=== PATIENT | female | born 1995 | race African-American/Black ===

== ENCOUNTER 2019-05-11 10:23 | Emergency (ER) | payer OTHER ==
[2019-05-11 10:34] VITALS: BMI 28.0
[2019-05-11] MEDS ORDERED: SODIUM CHLORIDE 1,000 ML IV STA (11:24)
[2019-05-11] MEDS ORDERED: KETOROLAC TROMETHAMINE 30 MG/1 ML VIAL IVPUSH ONE (11:31)
[2019-05-11] MEDS ORDERED: DEXAMETHASONE SOD PHOSPHATE 10 MG/1 ML VIAL IVPUSH ONE (11:38)
[2019-05-11 11:44] LABS: BASO % 0.5 % (0-2.0); EOS % 0.2 % (0-4.5); HEMATOCRIT 40.7 % (32.4-45.2); HEMOGLOBIN 13.1 GM/dL (10.7-15.3); MCH 24.6 pg (25.7-33.7); MCHC 32.2 g/dl (32.0-36.0); MEAN CELL VOLUME 76.2 fl (80-96); MEAN PLT VOLUME 8.1 fl (7.5-11.1); MONO % 6.9 % (3.8-10.2); NEUT % 68.4 % (42.8-82.8); PLATELET COUNT 304 K/MM3 (134-434); RBC 5.35 M/mm3 (3.60-5.2); RDW 12.7 % (11.6-15.6)
--- NOTE | 2019-05-11 11:47 | PDOC ---
History of Present Illness <Clarence Hall - Last Filed: 05/11/19 14:46> - General History Source: Patient Exam Limitations: No Limitations - History of Present Illness Initial Comments: 05/11/19 11:47 CHIEF COMPLAINT: Tooth pain HISTORY OF PRESENT ILLNESS: This is an otherwise healthy 24-year-old female who presents ambulatory to the emergency department for evaluation of dental pain and swelling. Patient had upper and lower right-sided wisdom teeth removed on Tuesday with an oral surgeon. She reports the rapid development of right- sided cheek swelling and swelling under her chin today. She is unable to fully open her mouth to speak or to drink fluids. She denies fever/chills. She has not noticed any redness/warmth in the area. She denies difficulty breathing or swallowing her own secretions. Vital signs on arrival are unremarkable. REVIEW OF SYSTEMS: GENERAL/CONSTITUTIONAL: No fever or chills. No weakness. No weight change. HEAD, EYES, EARS, NOSE AND THROAT: See HPI. CARDIOVASCULAR: No chest pain or palpitations. RESPIRATORY: No cough, wheezing, or shortness of breath. GASTROINTESTINAL: No nausea, vomiting, diarrhea or constipation. GENITOURINARY: No dysuria, frequency, or change in urination. MUSCULOSKELETAL: No joint or muscle swelling or pain. No neck or back pain. SKIN: No rash or easy bruising. NEUROLOGIC: No headache, vertigo, loss of consciousness, or loss of sensation. PSYCHIATRIC: No depression or anxiety. ENDOCRINE: No increased thirst. No abnormal weight change. HEMATOLOGIC/LYMPHATIC: No anemia, easy bleeding, or history of blood clots. ALLERGIC/IMMUNOLOGIC: No hives or skin allergy. No latex allergy. PHYSICAL EXAM: GENERAL: The patient is awake, alert, and fully oriented, in no acute distress. HEAD: Normal with no signs of trauma. ENT: Marked swelling right side of face with submandibular fullness. Trismus. LUNGS: Clear to auscultation bilaterally. Normal excursion. No respiratory distress or use of accessory muscles. CV: RRR, S1/S2, no MRG. Cap refill < 2 sec. ABDOMEN: Soft, non-distended, non-tender. EXTREMITIES: Normal range of motion, no edema. NEUROLOGICAL: Normal speech, normal gait. CN II-XII grossly intact. PSYCH: Normal mood, normal affect. SKIN: Warm, dry, normal turgor, no rashes or lesions noted. <Destinee Sandoval - Last Filed: 05/11/19 16:38> - General Chief Complaint: Toothache Stated Complaint: toothache Time Seen by Provider: 05/11/19 11:18 Past History <Clarence Hall - Last Filed: 05/11/19 14:46> - Past Medical History COPD: No Other medical history: grave's disease - Immunization History Immunization Up to Date: No - Psycho Social/Smoking Cessation Hx Smoking History: Never smoked Have you smoked in the past 12 months: No Information on smoking cessation initiated: No Hx Alcohol Use: No Drug/Substance Use Hx: No <Destinee Sandoval - Last Filed: 05/11/19 16:38> - Past Medical History Allergies/Adverse Reactions: Allergies Allergy/AdvReac Type Severity Reaction Status Date / Time No Known Allergies Allergy Verified 05/11/19 10:34 Home Medications: Ambulatory Orders Amoxicillin - [Amoxicillin 500mg Capsule -] 500 mg PO TID 05/11/19 Clindamycin [Cleocin -] 600 mg PO Q6H #56 capsule 05/11/19 Ibuprofen [Motrin -] 600 mg PO QID #30 tablet 05/11/19 *Physical Exam - Vital Signs Last Vital Signs Temp Pulse Resp BP Pulse Ox 98.9 F 92 H 18 122/83 99 05/11/19 13:43 05/11/19 13:43 05/11/19 13:43 05/11/19 13:43 05/11/19 13:43 <Clarence Hall - Last Filed: 05/11/19 14:46> - Vital Signs Last Vital Signs Temp Pulse Resp BP Pulse Ox 99.4 F 77 18 135/81 98 05/11/19 10:31 05/11/19 10:31 05/11/19 10:31 05/11/19 10:31 05/11/19 10:31 <Destinee Sandoval - Last Filed: 05/11/19 16:38> ED Treatment Course - LABORATORY CBC & Chemistry Diagram: 05/11/19 11:30 05/11/19 11:30 - ADDITIONAL ORDERS Additional order review: Laboratory Results 05/11/19 05/11/19 05/11/19 11:30 11:30 11:30 PT with INR 13.40 H INR 1.13 H Sodium 139 Potassium 4.1 Chloride 106 Carbon Dioxide 26 Anion Gap 7 L BUN 7.1 Creatinine 0.6 Est GFR (CKD-EPI)AfAm 147.86 Est GFR (CKD-EPI)NonAf 127.58 Random Glucose 91 Calcium 9.5 Total Bilirubin 0.4 AST 19 ALT 21 Alkaline Phosphatase 89 Total Protein 8.0 Albumin 3.8 Serum , Qual Negative 05/11/19 11:30 RBC 5.35 H MCV 76.2 L MCHC 32.2 RDW 12.7 MPV 8.1 Neutrophils % 68.4 Lymphocytes % 24.0 Monocytes % 6.9 Eosinophils % 0.2 Basophils % 0.5 - Medications Given in the ED: ED Medications Discontinued Medications Generic Name Dose Route Start Last Admin Trade Name Freq PRN Reason Stop Dose Admin Dexamethasone Sodium Phosphate 10 mg 05/11/19 11:38 05/11/19 12:00 Decadron Injection - IVPUSH 05/11/19 11:39 10 mg ONCE ONE Administration Sodium Chloride 1,000 mls @ 1,000 mls/hr 05/11/19 11:24 05/11/19 11:35 Normal Saline - IV 05/11/19 12:23 1,000 mls/hr ASDIR STA Administration Clindamycin Phosphate 600 mg in 50 mls @ 100 mls/hr 05/11/19 11:48 05/11/19 13:43 Cleocin 600 Mg Premix Ivpb - IVPB 05/11/19 12:17 100 mls/hr ONCE ONE Administration Protocol Ketorolac Tromethamine 30 mg 05/11/19 11:31 05/11/19 12:00 Toradol Injection - IVPUSH 05/11/19 11:32 30 mg ONCE ONE Administration <Clarence Hall - Last Filed: 05/11/19 14:46> - LABORATORY CBC & Chemistry Diagram: 05/11/19 11:30 05/11/19 11:30 - RADIOLOGY Radiology Studies Ordered: Category Date Time Status SOFT TISSUE NECK CT WITH CONTR [CT] Stat CT Scan 05/11/19 11:37 Ordered <Destinee Sandoval - Last Filed: 05/11/19 16:38> Medical Decision Making - Medical Decision Making 05/11/19 11:51 A/P: 24-year-old female with marketed facial swelling and submandibular swelling 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 -Basic labs -Toradol 30 mg IV for pain, Decadron 10 mg IV for inflammation, empiric clindamycin 600 mg IV piggyback -CT soft tissue neck -Reassess 05/11/19 13:12 WBC mildly elevated at 11.0. 05/11/19 14:55 CT reviewed and interpreted by radiology: There is significant soft tissue swelling over the right lateral aspect of the face over the right mandibular body with heterogeneous enhancement and multiple air pockets likely related to recent dental procedure with infection. However, no definite collection/ abscess is identified. Slightly enlarged right submandibular fossa lymph node. Patient reevaluated and trismus and pain have improved following steroids/ Toradol and antibiotics. She is feeling well and is able to tolerate oral fluids. Her mother agrees to observe her and reports that they live very close to the hospital and can easily return if needed. Will discharge with oral antibiotics and anti-inflammatories. Encourage patient to leave message for oral surgeon and to seek reevaluation on Tuesday. Strict return precautions reviewed with patient and mother. <Destinee Sandoval - Last Filed: 05/11/19 16:38> Discharge <Clarence Hall - Last Filed: 05/11/19 14:46> - Discharge Information Problems reviewed: Yes - Admission No <Destinee Sandoval - Last Filed: 05/11/19 16:38> - Discharge Information Clinical Impression/Diagnosis: Facial swelling, Dental infection Condition: Improved Disposition: HOME - Additional Discharge Information Prescriptions: Clindamycin [Cleocin -] 600 mg PO Q6H #56 capsule Ibuprofen [Motrin -] 600 mg PO QID #30 tablet - Follow up/Referral Referrals: [facility] [Provider Group] - Patient Discharge Instructions Patient Printed Discharge Instructions: DI on Tooth Extraction Additional Instructions: Take clindamycin (antibiotics) and ibuprofen as prescribed. Notify your oral surgeon of the complication. As discussed, please return here if you experience increased swelling, difficulty swallowing, difficulty opening your mouth fully, fever, difficulty breathing, or any other concerning symptoms. - Post Discharge Activity Work/Back to School Note: Back to Work
[2019-05-11] MEDS ORDERED: CLINDAMYCIN 600MG PREMIX IVPB 600 MG/50 ML BAG IVPB ONE ×2 (11:48→13:00)
[2019-05-11] MEDS ORDERED: DEXAMETHASONE SOD PHOSPHATE 10 MG/1 ML VIAL ONE (11:54)
[2019-05-11] MEDS ORDERED: KETOROLAC TROMETHAMINE 30 MG/1 ML VIAL ONE (11:55)
[2019-05-11 12:02] LABS: INR 1.13 (0.83-1.09); PROTHROMBIN TIME (PATIENT) 13.4 SEC (9.7-13.0)
[2019-05-11 12:42] LABS: ALBUMIN 3.8 g/dl (3.4-5.0); BILIRUBIN,TOTAL 0.4 mg/dL (0.2-1); BLOOD UREA NITROGEN 7.1 mg/dL (7-18); CALCIUM 9.5 mg/dL (8.5-10.1); CREATININE 0.6 mg/dL (0.55-1.3); POTASSIUM 4.1 mmol/L (3.5-5.1)
[2019-05-11 13:45] VITALS: BP 122/83; PULSE 92; TEMP 98.9
== END 2019-05-11 15:27 | disposition home or self-care (01) ==
LOC: JERFT 10:23
PROC: 3E03329 Introduction of Other Anti-infective into Peripheral Vein, Percutaneous Approach (ICD-10-PCS; principal; 2019-05-11)
PROC: 3E033GC Introduction of Other Therapeutic Substance into Peripheral Vein, Percutaneous Approach (ICD-10-PCS; 2019-05-11)
PROC: 3E0333Z Introduction of Anti-inflammatory into Peripheral Vein, Percutaneous Approach (ICD-10-PCS; 2019-05-11)
PROC: 3E0337Z Introduction of Electrolytic and Water Balance Substance into Peripheral Vein, Percutaneous Approach (ICD-10-PCS; 2019-05-11)
DX: K08.89 Other specified disorders of teeth and supporting structures (principal)
CPT/HCPCS: 36415; 70491-TC; 80053; 84703; 85025; 85610; 96361; 96365; 96375; 99283-25; J1100; J7030; Q9967